=== PATIENT | female | born 1985 | race Caucasian/White ===

== ENCOUNTER 2019-02-09 07:23 | Emergency (ER) | payer BC ==
[2019-02-09] MEDS ORDERED: SODIUM CHLORIDE 0.9% 1,000 ML IV ONE (08:01)
[2019-02-09] MEDS ORDERED: METOCLOPRAMIDE 5 MG/ML 2 ML VIAL IVP STA (08:01)
[2019-02-09] MEDS ORDERED: diphenhydrAMINE 50 MG/ML 1 ML VIAL IVP STA (08:02)
[2019-02-09] MEDS ORDERED: ACETAMINOPHEN TAB 500 MG TAB PO STA (08:02)
[2019-02-09] MEDS ORDERED: FAMOTIDINE 20 MG/2 ML VIAL IV STA (08:03)
--- NOTE | 2019-02-09 08:06 | ED ---
General Adult HPI - General Chief complaint: Nausea/Vomiting/Diarrhea Stated complaint: early preg/spotting & throwing up blood Source: patient, RN notes reviewed Mode of arrival: ambulatory Limitations: no limitations - History of Present Illness Initial comments: 33-year-old female currently about 6 weeks presents to the emergency department for multiple complaints. Patient states she has been experiencing vaginal spotting since yesterday. She does state this resolved today. Patient has also had lower abdominal cramping. Patient states she has also been very nauseous and has not been able to eat much over the past several days. States she has been eating ice chips Bowater makes her vomit. Patient states she did vomit up a small dime-sized piece of blood. Patient has not had care as of yet. Patient does have an established PUNCHBOARD FILLING MACHINE OPERATOR at [facility] PUNCHBOARD FILLING MACHINE OPERATOR but is not sure of the name. Patient states she recently had an IUD removed which is likely why she became . Denies any increased vaginal discharge.Patient has no other complaints at this time including shortness of breath, chest pain, headache, or visual changes. - Related Data Previous Rx's Medication Instructions Recorded Ondansetron [Zofran ODT] 4 mg PO Q8HR PRN #15 tab 02/09/19 Allergies Allergy/AdvReac Type Severity Reaction Status Date / Time No Known Allergies Allergy Verified 02/09/19 08:20 Review of Systems ROS Statement: Those systems with pertinent positive or pertinent negative responses have been documented in the HPI. ROS Other: All systems not noted in ROS Statement are negative. Past Medical History Past Medical History: No Reported History History of Any Multi-Drug Resistant Organisms: None Reported Past Surgical History: Section Past Psychological History: No Psychological Hx Reported Smoking Status: Former smoker Past Alcohol Use History: None Reported Past Drug Use History: None Reported General Exam Limitations: no limitations General appearance: alert, in no apparent distress Head exam: Present: atraumatic, normocephalic, normal inspection Eye exam: Present: normal appearance, PERRL, EOMI. Absent: scleral icterus, conjunctival injection, periorbital swelling ENT exam: Present: normal exam, mucous membranes moist Neck exam: Present: normal inspection, full ROM. Absent: tenderness, meningismus, lymphadenopathy Respiratory exam: Present: normal lung sounds bilaterally. Absent: respiratory distress, wheezes, rales, rhonchi, stridor Cardiovascular Exam: Present: regular rate, normal rhythm, normal heart sounds. Absent: systolic murmur, diastolic murmur, rubs, gallop, clicks GI/Abdominal exam: Present: soft, tenderness (Minimal tenderness noted to the suprapubic area without any guarding or rebound), normal bowel sounds. Absent: distended, guarding, rebound, rigid External exam: Present: normal external exam. Absent: erythema, swelling, lesions, lacerations, other Speculum exam: Present: other (Patient unable to tolerate speculum exam). Absent: normal speculum exam By manual exam: Present: other (Patient refuses bimanual exam after being unable to tolerate speculum exam) Neurological exam: Present: alert, oriented X3, CN II-XII intact Psychiatric exam: Present: normal affect, normal mood Course Vital Signs 02/09/19 02/09/19 02/09/19 07:28 10:18 11:32 Temperature 98.4 F 98.0 F Pulse Rate 68 82 81 Respiratory 16 18 16 Rate Blood Pressure 101/65 92/59 92/50 O2 Sat by Pulse 100 100 99 Oximetry Medical Decision Making - Medical Decision Making 33-year-old presents to the emergency department for a chief complaint of vaginal bleeding and nausea. Patient does have some suprapubic tenderness, no other tenderness. States the pain comes and goes and feels like cramping. Patient states she did have some vaginal bleeding yesterday none today. Patient unable to tolerate speculum exam. CBC unremarkable. CMP does show a glucose of 68, patient given juice for this which she did tolerate. However urine shows ketones of 4+, patient given 2 L of fluids. Red blood cells and urine likely due to the vaginal bleeding. Ultrasound shows a single viable intrauterine corresponding to the gestational age of 6 weeks and 2 days. There is a small subchorionic hemorrhage suspected. Patient is O+. Patient was given Reglan and Zofran, is feeling much better. Patient aware of risks of Reglan and Zofran , states she would still likely for symptom relief. Has not vomited in the emergency department department. Did drink juice. Feeling much better. She'll be given Zofran for home. She is to follow up with PUNCHBOARD FILLING MACHINE OPERATOR. She does have an established PUNCHBOARD FILLING MACHINE OPERATOR but she cannot remember the name. This is through [place]. HCG Quant will be repeated in 2 days. Blood pressure is 92/50. Patient is young and thin, likely her normal blood pressure. She did receive 2 L of fluids and is drinking juice in the emergency department. Patient feels comfortable going home. - Lab Data Result diagrams: 02/09/19 08:07 02/09/19 08:07 Lab Results 02/09/19 02/09/19 02/09/19 Range/Units 08:07 08:07 08:07 WBC 8.9 (3.8-10.6) k/uL RBC 4.39 (3.80-5.40) m/uL Hgb 11.9 (11.4-16.0) gm/dL Hct 37.2 (34.0-46.0) % MCV 84.8 (80.0-100.0) fL MCH 27.2 (25.0-35.0) pg MCHC 32.1 (31.0-37.0) g/dL RDW 14.4 (11.5-15.5) % Plt Count 286 (150-450) k/uL Neutrophils % 78 % Lymphocytes % 16 % Monocytes % 4 % Eosinophils % 1 % Basophils % 0 % Neutrophils # 6.9 (1.3-7.7) k/uL Lymphocytes # 1.4 (1.0-4.8) k/uL Monocytes # 0.4 (0-1.0) k/uL Eosinophils # 0.1 (0-0.7) k/uL Basophils # 0.0 (0-0.2) k/uL Sodium 140 (137-145) mmol/L Potassium 4.4 (3.5-5.1) mmol/L Chloride 106 (98-107) mmol/L Carbon Dioxide 20 L (22-30) mmol/L Anion Gap 14 mmol/L BUN 15 (7-17) mg/dL Creatinine 0.56 (0.52-1.04) mg/dL Est GFR (CKD-EPI)AfAm >90 (>60 ml/min/1.73 sqM) Est GFR (CKD-EPI)NonAf >90 (>60 ml/min/1.73 sqM) Glucose 68 L (74-99) mg/dL Calcium 10.0 (8.4-10.2) mg/dL Total Bilirubin 1.2 (0.2-1.3) mg/dL AST 20 (14-36) U/L ALT 22 (9-52) U/L Alkaline Phosphatase 47 (38-126) U/L Total Protein 8.0 (6.3-8.2) g/dL Albumin 4.7 (3.5-5.0) g/dL HCG, Quant 51142.7 mIU/mL Urine Color Urine Appearance (Clear) Urine pH (5.0-8.0) Ur Specific [place] (1.001-1.035) Urine Protein (Negative) Urine Glucose (UA) (Negative) Urine Ketones (Negative) Urine Blood (Negative) Urine Nitrite (Negative) Urine Bilirubin (Negative) Urine Urobilinogen (<2.0) mg/dL Ur Leukocyte Esterase (Negative) Urine RBC (0-5) /hpf Urine WBC (0-5) /hpf Ur Squamous Epith Cells (0-4) /hpf Urine Bacteria (None) /hpf Urine Mucus (None) /hpf Urine HCG, Qual Detected (Not Detectd) Blood Type Blood Type Recheck 02/09/19 02/09/19 Range/Units 08:07 09:25 WBC (3.8-10.6) k/uL RBC (3.80-5.40) m/uL Hgb (11.4-16.0) gm/dL Hct (34.0-46.0) % MCV (80.0-100.0) fL MCH (25.0-35.0) pg MCHC (31.0-37.0) g/dL RDW (11.5-15.5) % Plt Count (150-450) k/uL Neutrophils % % Lymphocytes % % Monocytes % % Eosinophils % % Basophils % % Neutrophils # (1.3-7.7) k/uL Lymphocytes # (1.0-4.8) k/uL Monocytes # (0-1.0) k/uL Eosinophils # (0-0.7) k/uL Basophils # (0-0.2) k/uL Sodium (137-145) mmol/L Potassium (3.5-5.1) mmol/L Chloride (98-107) mmol/L Carbon Dioxide (22-30) mmol/L Anion Gap mmol/L BUN (7-17) mg/dL Creatinine (0.52-1.04) mg/dL Est GFR (CKD-EPI)AfAm (>60 ml/min/1.73 sqM) Est GFR (CKD-EPI)NonAf (>60 ml/min/1.73 sqM) Glucose (74-99) mg/dL Calcium (8.4-10.2) mg/dL Total Bilirubin (0.2-1.3) mg/dL AST (14-36) U/L ALT (9-52) U/L Alkaline Phosphatase (38-126) U/L Total Protein (6.3-8.2) g/dL Albumin (3.5-5.0) g/dL HCG, Quant mIU/mL Urine Color Yellow Urine Appearance Cloudy H (Clear) Urine pH 6.0 (5.0-8.0) Ur Specific [place] 1.033 (1.001-1.035) Urine Protein 2+ H (Negative) Urine Glucose (UA) Negative (Negative) Urine Ketones 4+ H (Negative) Urine Blood Moderate H (Negative) Urine Nitrite Negative (Negative) Urine Bilirubin Negative (Negative) Urine Urobilinogen 3.0 (<2.0) mg/dL Ur Leukocyte Esterase Negative (Negative) Urine RBC 98 H (0-5) /hpf Urine WBC 5 (0-5) /hpf Ur Squamous Epith Cells 4 (0-4) /hpf Urine Bacteria Rare H (None) /hpf Urine Mucus Many H (None) /hpf Urine HCG, Qual (Not Detectd) Blood Type O Positive Blood Type Recheck No Disposition Clinical Impression: Threatened miscarriage Disposition: HOME SELF-CARE Condition: Good Instructions (If sedation given, give patient instructions): Threatened Miscarriage (ED) Additional Instructions: Please follow up with primary care and OBGYN in 1-2 days. Repeat lab work in 2 days. Please return to the emergency department if you have any worsening symptoms. Prescriptions: Ondansetron [Zofran ODT] 4 mg PO Q8HR PRN #15 tab PRN Reason: Nausea Is patient prescribed a controlled substance at d/c from ED?: No Referrals: Liliana Barbosa MD [STAFF PHYSICIAN] - 1-2 days Time of Disposition: 11:00
[2019-02-09 08:45] LABS: Appearance,Urine Cloudy (Clear); Bacteria,Urine Rare /hpf; Bilirubin,Urine Negative (Negative); Blood,Urine Moderate (Negative); Color,Urine Yellow; Glucose,Urine (UA) Negative (Negative); Ketones,Urine 4+ (Negative); Leukocyte Esterase,Urine Negative (Negative); Mucus,Urine Many /hpf; Nitrite,Urine Negative (Negative); Protein,Urine 2+ (Negative); RBC,Urine 98 /hpf (0-5); Specific Gravity,Urine 1.033 (1.001-1.035); Squamous Epithelial Cell,Urine 4 /hpf (0-4); WBC,Urine 5 /hpf (0-5)
[2019-02-09 08:50] LABS: ALT 22 U/L (9-52); AST 20 U/L (14-36); Albumin 4.7 g/dL (3.5-5.0); Alkaline Phosphatase 47 U/L (38-126); Anion Gap 14 mmol/L; Basophils % (A) 0 %; Blood Urea Nitrogen 15 mg/dL (7-17); Carbon Dioxide 20 mmol/L (22-30); Chloride 106 mmol/L (98-107); Eosinophils # (A) 0.1 k/uL (0-0.7); Eosinophils % (A) 1 %; Glucose 68 mg/dL (74-99); HCT 37.2 % (34.0-46.0); HGB 11.9 gm/dL (11.4-16.0); Lymphocytes # (A) 1.4 k/uL (1.0-4.8); Lymphocytes % (A) 16 %; MCH 27.2 pg (25.0-35.0); MCHC 32.1 g/dL (31.0-37.0); MCV 84.8 fL (80.0-100.0); Mean Platelet Volume 8.3; Monocytes # (A) 0.4 k/uL (0-1.0); Monocytes % (A) 4 %; Neutrophils # (A) 6.9 k/uL (1.3-7.7); Neutrophils % (A) 78 %; Platelet Count 286 k/uL (150-450); Potassium 4.4 mmol/L (3.5-5.1); RBC 4.39 m/uL (3.80-5.40); RDW 14.4 % (11.5-15.5); Sodium 140 mmol/L (137-145); Total Bilirubin 1.2 mg/dL (0.2-1.3); WBC 8.9 k/uL (3.8-10.6)
--- NOTE | 2019-02-09 09:17 | US ---
EXAMINATION TYPE: Transabdominal DATE OF EXAM: 02/09/2019 8:46 AM COMPARISON: NONE CLINICAL HISTORY: pain. Spotting and cramping x 2 days, N/V x 1 day, throwing up blood today, 3, para 2, history of 2 c-sections EXAM PERFORMED: Transabdominal (TA) EXAM MEASUREMENTS: GESTATIONAL AGE / DATING Physician Established: Not established yet Dates by LMP: (5 weeks/6 days) EDC: 10/06/2019 Dates by First Scan: This is 1st scan Dates by Current Scan for: (6 weeks/2 days) EDC: 10/03/2019 MATERNAL ANATOMY Uterus: 8.5 x 5.0 x 6.1cm, anteverted Right Ovary: 3.7 x 2.1 x 2.9cm Left Ovary: 3.3 x 1.3 x 2.1cm Post CDS / Adnexa: wnl Presence of free fluid: no Presence of corpus luteal cyst: right ovary: 2.5 x 1.7 x 2.0cm hypoechoic area with peripheral vascul arity Presence of subchorionic bleed: small 1.2 x 0.7 x 1.2cm hypoechoic area adjacent to gestational sac GESTATION / SURVEY CRL: 0.4cm (6 weeks/0 days) MSD: 2.1 (6 weeks/4 days) Yolk Sac (normal less than 6mm): 3.7mm Heart Rate: 111 bpm Rhythm: Normal IUP: Viable IUP Date of LMP: 12/30/2018 Beta HcG (if available): Not available at time of exam Viable single IUP measuring 6 weeks 2 days with a heart rate of 111bpm and an estimated delivery date of 10/03/2019. IMPRESSION: Single viable intrauterine corresponding to ultrasound age 6 weeks 2 days with estimated da te of delivery 10/03/2019. Small subchorionic hemorrhage suspected.
[2019-02-09] MEDS ORDERED: SODIUM CHLORIDE 0.9% 1,000 ML IV STA (09:25)
[2019-02-09 09:36] LABS: HCG,Quantitative Serum 73572.7 mIU/mL
[2019-02-09] MEDS ORDERED: ONDANSETRON 4 MG/2 ML VIAL IVP STA (10:20)
[2019-02-09 11:33] VITALS: BP 92/50; PULSE 81; RESP 16; TEMP 98
[2019-02-10 13:38] LABS: C. trachomatis,PCR Negative (Neg,Equiv); Chlamydia trachomatis Source Urine
[2019-02-10 13:39] LABS: N. gonorrhoeae,PCR Negative (Neg,Equiv); Neisseria Source Urine
== END 2019-02-09 11:48 | disposition home or self-care (01) ==
LOC: EC 07:23
DX: O20.0 Threatened abortion (principal); O99.89 Other specified diseases and conditions complicating pregnancy, childbirth and the puerperium; R82.4 Acetonuria; Z67.40 Type O blood, Rh positive; Z87.891 Personal history of nicotine dependence; Z98.890 Other specified postprocedural states; Z3A.01 Less than 8 weeks gestation of pregnancy; Z53.20 Procedure and treatment not carried out because of patient's decision for unspecified reasons
CPT/HCPCS: 36415; 86900; 86901; 80053; 85025; 81001; 81025; 84702; 87491; 87591; 76801; 99284; 96374; 96375 ×3; 96361 ×3; J1200; J2765; J2405

== ENCOUNTER 2019-02-13 09:16 | Emergency (ER) | payer BC ==
[2019-02-13 09:33] VITALS: TEMP 98.6
[2019-02-13] MEDS ORDERED: METOCLOPRAMIDE 5 MG/ML 2 ML VIAL IVP STA (10:45)
[2019-02-13] MEDS ORDERED: SODIUM CHLORIDE 0.9% 1,000 ML IV STA ×2 (10:45)
[2019-02-13] MEDS ORDERED: diphenhydrAMINE 50 MG/ML 1 ML VIAL IVP STA (10:45)
--- NOTE | 2019-02-13 10:47 | ED ---
Abdominal Pain HPI - General Chief Complaint: Abdominal Pain Stated Complaint: 6wks preg, cramping, vomiting Time Seen by Provider: 02/13/19 10:31 Source: patient, RN notes reviewed, old records reviewed Mode of arrival: ambulatory Limitations: no limitations - History of Present Illness Initial Comments: this is a 33-year-old female who presents emergency Department today for reevaluation for nausea and vomiting and lower abdominal cramping and occasional spotting. She is currently 6 weeks . She is seen in the emergency department 4 days ago for similar complaints. She reports that she is waiting for an HAZ TECH to prove her is Patient. Patient is a female. Patient states she plans to follow-up with Dr. Bueno. Patient states that she's had the same amount of light spotting with wiping after urinating. Patient complains of not being able to hold any food or drink down for greater than 45 minutes.Patient complains of bright red blood in her vomit. Patient states that she's had no chest pain or shortness of breath. She denies any dysuria or hematuria. She reports normal stools. - Related Data Previous Rx's Medication Instructions Recorded Metoclopramide [Reglan] 10 mg PO ACHS #12 tab 02/13/19 Allergies Allergy/AdvReac Type Severity Reaction Status Date / Time No Known Allergies Allergy Verified 02/13/19 10:36 Review of Systems ROS Statement: Those systems with pertinent positive or pertinent negative responses have been documented in the HPI. ROS Other: All systems not noted in ROS Statement are negative. Past Medical History Past Medical History: No Reported History History of Any Multi-Drug Resistant Organisms: None Reported Past Surgical History: Section Past Psychological History: No Psychological Hx Reported Smoking Status: Former smoker Past Alcohol Use History: None Reported Past Drug Use History: None Reported General Exam - General Exam Comments Initial Comments: This is a 33-year-old female. Alert and oriented 3. Patient appears in moderate discomfort. General: Well appearing, well nourished, in no distress. Oriented x 3, normal mood and affect . Ambulating without difficulty. Skin: Good turgor, no rash, unusual bruising or prominent lesions Hair: Normal texture and distribution. HEENT: Head: Normocephalic, atraumatic, no visible or palpable masses, depressions, or scaring. Eyes: Visual acuity intact, conjunctiva clear, sclera non-icteric, EOM intact, PERRL. Ears: EACs clear, TMs translucent & cone of light visualized. hearing intact. Nose: No external lesions, mucosa non-inflamed, septum and turbinates normal Mouth: Mucous membranes moist, no mucosal lesions. Teeth/Gums: No obvious caries or periodontal disease. No gingival inflammation or significant resorption. Pharynx: Mucosa non-inflamed, no tonsillar hypertrophy or exudate Neck: Supple, without lesions, bruits, or adenopathy, thyroid non-enlarged and non-tender Heart: No cardiomegaly or thrills; regular rate and rhythm, no murmur or gallop Lungs: Clear to auscultation and percussion Abdomen: Bowel sounds normal, no tenderness, organomegaly, masses, or hernia Extremities: No amputations or deformities, cyanosis, edema or varicosities, peripheral pulses intact Musculoskeletal: Normal gait and station. No misalignment, asymmetry, crepitation, defects, tenderness, masses, effusions, decreased range of motion, instability, atrophy or abnormal strength or tone in the head, neck, spine, ribs, pelvis or extremities. Neurologic: CN 2-12 normal. Sensation to pain, touch, and proprioception normal. DTRs normal in upper and lower extremities. No pathologic reflexes. Psychiatric: Oriented X3, intact recent and remote memory, judgment and insight, normal mood and affect. Limitations: no limitations Course Vital Signs 02/13/19 02/13/19 09:30 14:15 Temperature 98.6 F Pulse Rate 105 H 93 Respiratory 18 15 Rate Blood Pressure 112/66 98/54 O2 Sat by Pulse 99 100 Oximetry Medical Decision Making - Medical Decision Making 33 -year-old female who presents emergency Department today with complaints of nausea and vomiting. Vomiting some blood. She states that she is 6 weeks . She was sent to get some repeat lab work had not had it completed as of this time. She states she's had some intermittent spotting. Patient has no significant abdominal tenderness. Bladder work was reviewed with radiation she has increased. Ultrasound does show viable IUP. Patient has been given nausea medication. She was given a liter bolus. Patient did urinate emergency department but did flush her urine sample. Unable to check at this time. Patient will be discharged with prescription for Reglan. Discussed return parameters. - Lab Data Result diagrams: 02/13/19 11:24 02/13/19 11:24 Lab Results 02/13/19 02/13/19 Range/Units 11:24 11:24 WBC 9.7 (3.8-10.6) k/uL RBC 4.82 (3.80-5.40) m/uL Hgb 13.2 (11.4-16.0) gm/dL Hct 41.3 (34.0-46.0) % MCV 85.6 (80.0-100.0) fL MCH 27.3 (25.0-35.0) pg MCHC 31.9 (31.0-37.0) g/dL RDW 14.8 (11.5-15.5) % Plt Count 316 (150-450) k/uL Neutrophils % 81 % Lymphocytes % 13 % Monocytes % 3 % Eosinophils % 1 % Basophils % 0 % Neutrophils # 7.9 H (1.3-7.7) k/uL Lymphocytes # 1.3 (1.0-4.8) k/uL Monocytes # 0.3 (0-1.0) k/uL Eosinophils # 0.1 (0-0.7) k/uL Basophils # 0.0 (0-0.2) k/uL Hypochromasia Slight Sodium 139 (137-145) mmol/L Potassium 4.4 (3.5-5.1) mmol/L Chloride 108 H (98-107) mmol/L Carbon Dioxide 14 L (22-30) mmol/L Anion Gap 17 mmol/L BUN 15 (7-17) mg/dL Creatinine 0.62 (0.52-1.04) mg/dL Est GFR (CKD-EPI)AfAm >90 (>60 ml/min/1.73 sqM) Est GFR (CKD-EPI)NonAf >90 (>60 ml/min/1.73 sqM) Glucose 67 L (74-99) mg/dL Calcium 10.6 H (8.4-10.2) mg/dL Total Bilirubin 1.2 (0.2-1.3) mg/dL AST 20 (14-36) U/L ALT 18 (9-52) U/L Alkaline Phosphatase 50 (38-126) U/L Total Protein 8.7 H (6.3-8.2) g/dL Albumin 5.1 H (3.5-5.0) g/dL Amylase 82 (30-110) U/L Lipase 37 (23-300) U/L HCG, Quant 375798.0 mIU/mL - Radiology Data Radiology results: report reviewed Heart a 1 26 bpm. 27 m subchorionic bleed. Disposition Clinical Impression: 6 weeks gestation of , Nausea & vomiting Disposition: HOME SELF-CARE Condition: Good Instructions (If sedation given, give patient instructions): Nausea and Vomit ing in (ED) Additional Instructions: Patient advised is follow-up with her primary care provider and HAZ TECH. Use nausea medicine as needed. Return to emergency department if any alarming signs or symptoms occur. Prescriptions: Metoclopramide [Reglan] 10 mg PO ACHS #12 tab Is patient prescribed a controlled substance at d/c from ED?: No Referrals: None,Stated [Primary Care Provider] - 1-2 days Mark Saunders DO [Doctor of Osteopathic Medicine] - 1-2 days Time of Disposition: 14:07
[2019-02-13 11:46] LABS: ALT 18 U/L (9-52); AST 20 U/L (14-36); Albumin 5.1 g/dL (3.5-5.0); Alkaline Phosphatase 50 U/L (38-126); Amylase 82 U/L (30-110); Anion Gap 17 mmol/L; Blood Urea Nitrogen 15 mg/dL (7-17); Calcium 10.6 mg/dL (8.4-10.2); Carbon Dioxide 14 mmol/L (22-30); Chloride 108 mmol/L (98-107); Glucose 67 mg/dL (74-99); Lipase 37 U/L (23-300); Potassium 4.4 mmol/L (3.5-5.1); Sodium 139 mmol/L (137-145); Total Bilirubin 1.2 mg/dL (0.2-1.3); Total Protein 8.7 g/dL (6.3-8.2)
[2019-02-13 11:47] LABS: Basophils % (A) 0 %; Eosinophils # (A) 0.1 k/uL (0-0.7); Eosinophils % (A) 1 %; HCT 41.3 % (34.0-46.0); HGB 13.2 gm/dL (11.4-16.0); Hypochromasia Slight; Lymphocytes # (A) 1.3 k/uL (1.0-4.8); Lymphocytes % (A) 13 %; MCH 27.3 pg (25.0-35.0); MCHC 31.9 g/dL (31.0-37.0); MCV 85.6 fL (80.0-100.0); Mean Platelet Volume 8.2; Monocytes # (A) 0.3 k/uL (0-1.0); Monocytes % (A) 3 %; Neutrophils # (A) 7.9 k/uL (1.3-7.7); Neutrophils % (A) 81 %; Platelet Count 316 k/uL (150-450); RBC 4.82 m/uL (3.80-5.40); RDW 14.8 % (11.5-15.5); WBC 9.7 k/uL (3.8-10.6)
--- NOTE | 2019-02-13 13:23 | US ---
EXAMINATION TYPE: Transabdominal DATE OF EXAM: 02/13/2019 1:05 PM COMPARISON: US CLINICAL HISTORY: Pain. pelvic pain with small amount of vaginal bleeding; ; C section x 2 EXAM PERFORMED: Transabdominal (TA) EXAM MEASUREMENTS: GESTATIONAL AGE / DATING Physician Established: Not yet established Dates by LMP: ( 6 weeks/3 days) EDC: 10/06/2019 Dates by First Scan: (6 weeks/6 days) EDC: 10/03/2019 Dates by Current Scan for: (6 weeks/5 days) EDC: 10/04/2019 MATERNAL ANATOMY Uterus: 9.3 x 6.0 x 5.5cm Right Ovary: 3.2 x 2.8 x 21.9cm w/CL of Left Ovary: 2.1 x 1.4 x 1.6cm Post CDS / Adnexa: wnl Presence of free fluid: no Presence of corpus luteal cyst: in right ovary = 2.1 x 1.3 x 1.9cm Presence of subchorionic bleed ([place]): yes, seen at superior subchorionic area = 2.0 x 2.0 x 0.7cm GESTATION / SURVEY CRL: 0.8cm (6 weeks/5 days) Yolk Sac (normal less than 6mm): 4.1mm Heart Rate: 126 bpm Rhythm: Normal IUP: Viable IUP Date of LMP: 12/30/2018 Beta HcG (if available): NA Single, viable IUP,6 weeks/5 days, EDC: 10/04/2019; [id number]; presence of Subchorionic hemorrhage. IMPRESSION: Single viable 6 week 5 day with a heart rate of 126 bpm. There is a 2.0 cm subchorionic hem orrhage.
[2019-02-13 14:19] VITALS: BP 98/54; PULSE 93; RESP 15
== END 2019-02-13 15:00 | disposition home or self-care (01) ==
LOC: EC 09:16
DX: O21.9 Vomiting of pregnancy, unspecified (principal); O26.891 Other specified pregnancy related conditions, first trimester; R10.30 Lower abdominal pain, unspecified; Z3A.01 Less than 8 weeks gestation of pregnancy; Z87.891 Personal history of nicotine dependence; Z53.8 Procedure and treatment not carried out for other reasons
CPT/HCPCS: 36415; 80053; 82150; 83690; 85025; 84702; 76801; 99284; 96374; 96375; 96361 ×2; J1200; J2765

== ENCOUNTER 2019-02-23 11:34 | Inpatient (IN) | payer BC ==
[2019-02-23] MEDS ORDERED: SODIUM CHLORIDE 0.45% 1,000 ML IV SCH (12:00)
[2019-02-23] MEDS ORDERED: LIDOCAINE 1% INJ 10MG/ML (20 ML MDV) ONE (15:58)
--- NOTE | 2019-02-23 16:48 | IR ---
EXAMINATION TYPE: IR cvc insert >=5 years DATE OF EXAM: 02/23/2019 COMPARISON: NONE CLINICAL HISTORY: Hyperemesis Needs long-term intravenous access for hydration. PROCEDURE: After informed consent, the skin overlying the left brachial vein was localized with ultrasound and n oted to be compressible and patent. An ultrasound image was obtained and submitted on the patient's chart. The overlying skin was prepped and draped and Lidocaine was used for local anesthesia. A ski n anali was made with a scalpel. Access was gained to the vein under ultrasound guidance with a 21 ga uge needle and a 0.018 inch wire was advanced. Access site was dilated with Peel-Away sheath and cat heter tailored to the appropriate length and advanced such that the distal tip is at the cavoatrial j unction. Spot image was obtained verifying placement. Catheter was fixed to the skin and a sterile dressing was placed following hemostasis. Catheter was aspirated and flushed with saline. Patient w as discharged in stable condition without complication. Maximal barrier technique is utilized. Ultra sound image is documented on the chart. Ultrasound used with sterile technique. Fluoro time and fluoroscopic images submitted to document procedure: 0.5 minutes fluoroscopy time, 19 intraoperative images document the procedure IMPRESSION: STATUS POST ULTRASOUND AND FLUOROSCOPIC GUIDED PICC LINE PLACEMENT, READY FOR USE. THIS PROCEDURE WAS PERFORMED BY THE UNDERSIGNED.
[2019-02-23] MEDS ORDERED: ONDANSETRON 4 MG/2 ML VIAL IVP PRN (16:57)
[2019-02-23] MEDS ORDERED: DEXTROSE 5%-LACTATED RINGERS 1,000 ML IV SCH ×3 (17:00→19:00)
[2019-02-23 18:55] LABS: Appearance,Urine Turbid (Clear); Bacteria,Urine Many /hpf; Bilirubin,Urine Negative (Negative); Blood,Urine Negative (Negative); Color,Urine Yellow; Glucose,Urine (UA) 4+ (Negative); Leukocyte Esterase,Urine Trace (Negative); Mucus,Urine Many /hpf; Nitrite,Urine Positive (Negative); PH, Urine 6.5 (5.0-8.0); Protein,Urine Trace (Negative); RBC,Urine 4 /hpf (0-5); Specific Gravity,Urine 1.017 (1.001-1.035); Squamous Epithelial Cell,Urine 64 /hpf (0-4); WBC,Urine 17 /hpf (0-5)
[2019-02-23 19:12] LABS: Ketones,Urine 2+ (Negative)
[2019-02-23] MEDS ORDERED: LACTATED RINGERS 1,000 ML IV SCH (19:30)
[2019-02-23] MEDS: LACTATED RINGERS 1,000 ML IV SCH (20:29)
--- NOTE | 2019-02-23 20:54 | P.HPOB ---
History of Present Illness H&P Date: 02/23/19 Chief Complaint: 7+ weeks, hyperemesis gravidarum The patient is a 33-year-old 3 para 2001 who presented to the office this morning with continued complaints of severe nausea and vomiting for which she has tried Zofran as well as Phenergan suppositories but continues to have regular and daily vomiting. She reported that she is urinating perhaps once or twice a day and that it is significantly concentrated. As a result, I had her present to triage for IV rehydration at which time we were unable to place a routine IV either by the nursing staff or by anesthesia. An attempt was made by the clinical laboratory scientist to do ultrasound-guided placement of an IV which failed. She also had a failed attempt at placing in external jugular line. As result, the only option was to have a PICC line placed with radiology which was performed without difficulty. She since then has had aggressive rehydration but continues to have nausea. heart tones were normal in the office this morning by bedside ultrasound. She additionally complains of some fairly significant congestion with an upper respiratory infection. There has been some vaginal bleeding as well from a documented subchorionic bleed but, as noted above, heart tones were normal this morning. Obstetrical history: 3 para 2001 with a history of 2 previous normal vaginal deliveries approximate 10 years ago. Current statistics are as listed above. Her EDC has been established by both last menstrual period and confirmed by 6 week ultrasound. labs have not yet been drawn. Gynecologic history: Unremarkable with no history of any infections to include STDs. Review of Systems Review of systems is confined to history of present illness. Past Medical History Past Medical History: No Reported History History of Any Multi-Drug Resistant Organisms: None Reported Past Surgical History: Section Additional Past Surgical History / Comment(s): x2 Past Anesthesia/Blood Transfusion Reactions: No Reported Reaction Past Psychological History: No Psychological Hx Reported Smoking Status: Never smoker Past Alcohol Use History: None Reported Past Drug Use History: None Reported - Past Family History Mother Family Medical History: No Reported History Father Family Medical History: Unable to Obtain Medications and Allergies Home Medications Medication Instructions Recorded Confirmed Type Metoclopramide [Reglan] 10 mg PO ACHS #12 tab 02/13/19 02/23/19 Rx Ondansetron Odt [Zofran ODT] 4 mg PO Q6HR PRN 02/23/19 02/23/19 History Promethazine HCl [Phenadoz] 25 mg RECTAL Q6HR PRN 02/23/19 02/23/19 History Allergies Allergy/AdvReac Type Severity Reaction Status Date / Time No Known Allergies Allergy Verified 02/23/19 17:24 Exam Vital Signs Temp Pulse Resp BP Pulse Ox 02/23/19 20:00 98.5 F 88 18 100/66 100 02/23/19 16:28 99.0 F 84 16 108/61 100 Intake and Output 02/23/19 02/23/19 02/23/19 06:59 14:59 22:59 Output Total 750 Balance -750 Output: Urine 750 Other: Voiding Method Toilet # Emeses 1 Weight 68.039 kg 68.6 kg In general, this is a well-developed, well-nourished -[place] female in no acute distress. Her heart has a regular rhythm and rate without murmur. Her lungs are clear to auscultation bilaterally in all kimble. Her abdomen is nondistended, soft, nontender, and without any palpable masses. Her extremities are without any cyanosis, clubbing, or edema and are nontender to palpation bilaterally. Pelvic examination is deferred. Results Abnormal Lab Results - Last 24 Hours (Table) 02/23/19 Range/Units 18:40 Urine Appearance Turbid H (Clear) Urine Protein Trace H (Negative) Urine Glucose (UA) 4+ H (Negative) Urine Ketones 2+ H (Negative) Urine Nitrite Positive H (Negative) Ur Leukocyte Esterase Trace H (Negative) Urine WBC 17 H (0-5) /hpf Ur Squamous Epith Cells 64 H (0-4) /hpf Urine Bacteria Many H (None) /hpf Urine Mucus Many H (None) /hpf Assessment and Plan (1) Hyperemesis gravidarum Current Visit: Yes Status: Acute Code(s): O21.0 - MILD HYPEREMESIS GRAVIDARUM SNOMED Code(s): 49822032 (2) Threatened miscarriage Current Visit: No Status: Acute Code(s): O20.0 - THREATENED S NOMED Code(s): 61331306 Plan: As noted in history of present illness, a PICC line has been placed which will be useful and continuing to maintain her hydration. I will seek a nutrition consult tomorrow and have drawn both a CBC and a complete metabolic panel in order to attempt to help assess her nutritional status. She additionally has Zofran available for ongoing nausea. At this time, I have allowed her only sips and chips to clear liquids if she is able to tolerate. Should she tolerate liquids, we will attempt to advance her diet. She is currently admitted under 23 hour observation but may require a longer stay should we be unable to manage her nausea.
[2019-02-23] MEDS: PSEUDOEPHEDRINE 30 MG TAB PO PRN (21:58)
[2019-02-24] MEDS: LACTATED RINGERS 1,000 ML IV SCH ×3 (06:10→17:50)
[2019-02-24 07:59] LABS: Basophils % (A) 0 %; Eosinophils # (A) 0.1 k/uL (0-0.7); Eosinophils % (A) 1 %; HCT 28.8 % (34.0-46.0); Lymphocytes # (A) 1.3 k/uL (1.0-4.8); Lymphocytes % (A) 18 %; MCH 28.2 pg (25.0-35.0); MCHC 34.6 g/dL (31.0-37.0); MCV 81.5 fL (80.0-100.0); Mean Platelet Volume 8.8; Monocytes # (A) 0.4 k/uL (0-1.0); Monocytes % (A) 5 %; Neutrophils # (A) 5.7 k/uL (1.3-7.7); Neutrophils % (A) 76 %; Platelet Count 201 k/uL (150-450); RBC 3.54 m/uL (3.80-5.40); RDW 14.4 % (11.5-15.5); WBC 7.6 k/uL (3.8-10.6)
[2019-02-24 08:17] LABS: ALT 14 U/L (9-52); AST 13 U/L (14-36); Albumin 3.2 g/dL (3.5-5.0); Alkaline Phosphatase 42 U/L (38-126); Anion Gap 8 mmol/L; Blood Urea Nitrogen 3 mg/dL (7-17); Calcium 9.1 mg/dL (8.4-10.2); Carbon Dioxide 24 mmol/L (22-30); Chloride 106 mmol/L (98-107); Glucose 77 mg/dL (74-99); Potassium 3.4 mmol/L (3.5-5.1); Sodium 138 mmol/L (137-145); Total Bilirubin 0.8 mg/dL (0.2-1.3); Total Protein 5.8 g/dL (6.3-8.2)
--- NOTE | 2019-02-24 09:55 | P.PN ---
Subjective Progress Note Date: 02/24/19 Principal diagnosis: 7+ weeks intrauterine , hyperemesis The patient does report some improvement in nausea though she still continues to have a moderate degree of nausea with less vomiting. She has been able to tolerate a small amount of Jell-O though does not have a significant degree of hunger at this point. She denies any other ongoing problems or concerns. She is urinating on a regular basis now and reports that it is significantly less concentrated in appearance. Objective - Vital Signs Vital signs: Vital Signs Temp 98.6 F 02/24/19 07:42 Pulse 75 02/24/19 07:43 Resp 16 02/24/19 07:43 BP 94/61 02/24/19 07:42 Pulse Ox 100 02/24/19 07:42 Intake & Output 02/23/19 02/24/19 02/24/19 18:59 06:59 18:59 Intake Total 170 Output Total 350 1050 375 Balance -350 -880 -375 Weight 68.6 kg Intake: Oral 170 Output: Urine 350 1050 375 Other: Voiding Method Toilet Toilet # Voids 1 # Emeses 1 - Exam In general, this is a well-developed, well-nourished female in no acute distress. Her abdomen is nondistended, soft, nontender, without any apparent masses. Her extremities are without any cyanosis, clubbing, or edema and are nontender to palpation bilaterally. - Labs CBC & Chem 7: 02/24/19 07:14 02/24/19 07:14 Labs: Abnormal Lab Results - Last 24 Hours (Table) 02/23/19 02/24/19 02/24/19 Range/Units 18:40 07:14 07:14 RBC 3.54 L (3.80-5.40) m/uL Hgb 10.0 L D (11.4-16.0) gm/dL Hct 28.8 L (34.0-46.0) % Potassium 3.4 L (3.5-5.1) mmol/L BUN 3 L (7-17) mg/dL Creatinine 0.44 L (0.52-1.04) mg/dL AST 13 L (14-36) U/L Total Protein 5.8 L (6.3-8.2) g/dL Albumin 3.2 L (3.5-5.0) g/dL Urine Appearance Turbid H (Clear) Urine Protein Trace H (Negative) Urine Glucose (UA) 4+ H (Negative) Urine Ketones 2+ H (Negative) Urine Nitrite Positive H (Negative) Ur Leukocyte Esterase Trace H (Negative) Urine WBC 17 H (0-5) /hpf Ur Squamous Epith Cells 64 H (0-4) /hpf Urine Bacteria Many H (None) /hpf Urine Mucus Many H (None) /hpf Assessment and Plan (1) Hyperemesis gravidarum Current Visit: Yes Status: Acute Code(s): O21.0 - MILD HYPEREMESIS GRAVIDARUM SNOMED Code(s): 75075248 (2) Threatened miscarriage Current Visit: No Status: Acute Code(s): O20.0 - THREATENED SNOMED Code(s): 61017484 Plan: Nutrition consultation is pending today and will likely require some additional potassium given her lab findings. I will add some IV Pepcid today to see if this improves any of her nausea as well. I have encouraged her to slowly attempt to increase her oral intake with the idea of discharging her as soon as she is able to manage herself as an outpatient. She will need to be instructed on care and management of her PICC line.
[2019-02-24] MEDS: FAMOTIDINE 20 MG/2 ML VIAL IV SCH ×2 (10:19→20:22)
--- NOTE | 2019-02-24 11:37 | P.MSEPDOC ---
Presenting Problems - Arrival Data Date of Arrival on Unit: 02/23/19 Time of Arrival on Unit: 16:50 Mode of Transport: Wheelchair - Complaint OB-Reason for Admission/Chief Complaint: Hyperemesis Comment: Pt sent from clinic. Vital Signs - Temperature Temperature: 98.6 F Temperature Source: Oral - Pulse Pulse Oximetery Pulse Rate: 75 Pulse Assessment Method: Pulse Oximetry - Respirations Respiratory Rate: 16 - Blood Pressure Right Arm Blood Pressure: 94/61 Blood Pressure Mean: 72 Blood Pressure Source: Automatic Cuff Physician Notification (Pre) - Physician Notified Physician/Practitioner Notifed:: mike New Order Received: Yes - Notification Comment Comment: Dr Dela Cruz called with update on pt. updated on intake .lack of nausea. lack of ambulation in amos. orders received to get consult for case management for picc line care at home. and human resource statistician to start TPN while pt is in hospital. I agree with the RN Medical Screening Exam: Yes Risk & Benefit of care provided described in d/c instruction: Yes Diagnosis: VOMITING OF , UNSPECIFIED
[2019-02-24 12:27] LABS: Glucose,Whole Blood 76 mg/dL (75-99)
[2019-02-24] MEDS ORDERED: INSULIN ASPART (NovoLOG) 100 UNIT/ML VIAL SQ SCH (12:30)
[2019-02-24 12:52] VITALS: BMI 26.9
[2019-02-24 13:00] LABS: Magnesium 1.5 mg/dL (1.6-2.3); Phosphorus 3.6 mg/dL (2.5-4.5)
[2019-02-24] MEDS ORDERED: MVI, ADULT NO.4 WITH VIT K 10 ML, TRACE (CONC-1ML/DOSE) 1 ML in AMINO ACID 5%-D15W+LYTE... IV ONE ×3 (14:00)
[2019-02-24] MEDS ORDERED: FAT EMULSION 20% 250 ML IV SCH (14:00)
[2019-02-24 17:27] LABS: Glucose,Whole Blood 86 mg/dL (75-99)
[2019-02-24] MEDS: INSULIN ASPART (NovoLOG) 100 UNIT/ML VIAL SQ SCH (17:27)
[2019-02-24] MEDS: PSEUDOEPHEDRINE 30 MG TAB PO PRN (22:33)
[2019-02-25] MEDS: INSULIN ASPART (NovoLOG) 100 UNIT/ML VIAL SQ SCH ×2 (00:12→06:30)
[2019-02-25 00:15] LABS: Glucose,Whole Blood 104 mg/dL (75-99)
[2019-02-25] MEDS: LACTATED RINGERS 1,000 ML IV SCH (03:05)
[2019-02-25 06:10] LABS: Glucose,Whole Blood 92 mg/dL (75-99)
[2019-02-25] MEDS: FAMOTIDINE 20 MG/2 ML VIAL IV SCH (08:25)
[2019-02-25 08:55] VITALS: BP 93/59; PULSE 77; RESP 16; TEMP 98.3
--- NOTE | 2019-02-25 09:11 | P.DS ---
Providers Date of admission: 02/24/19 14:30 Expected date of discharge: 02/25/19 Attending physician: Bryson Dela Cruz Primary care physician: Stated None - Discharge Diagnosis(es) (1) Hyperemesis gravidarum Current Visit: Yes Status: Acute (2) 6 weeks gestation of Current Visit: No Status: Acute (3) Nausea & vomiting Current Visit: No Status: Acute Hospital Course: this is a pleasant 33-year-old 3 para 2001 at 6 weeks gestation that presented with complaints of severe nausea and vomiting to Dr. Dela Cruz. she had failed outpatient treatment with Zofran as well as Phenergan suppositories. She was sent to triage for IV hydration at which time they were unable to place an IV by anesthesia or the nursing staff therefore a PICC line was placed. Patient had aggressive rehydration, nausea this morning has decreased and she is able to tolerate crackers. She states she is feeling improved. We will maintain PICC line and have ordered home care to give her a fluid bolus tomorrow in addition. She states she is able to tolerate her Zofran ODT tablets without nausea or vomiting so we will continue those. She does have that was at home in addition. She denies vaginal bleeding. Patient Condition at Discharge: Good Plan - Discharge Summary Discharge Rx Participant: No New Discharge Prescriptions: No Action Metoclopramide [Reglan] 10 mg PO ACHS #12 tab Promethazine HCl [Phenadoz] 25 mg RECTAL Q6HR PRN PRN Reason: nausea Ondansetron Odt [Zofran ODT] 4 mg PO Q6HR PRN PRN Reason: Nausea Discharge Medication List Metoclopramide [Reglan] 10 mg PO ACHS #12 tab 02/13/19 [Rx] Ondansetron Odt [Zofran ODT] 4 mg PO Q6HR PRN 02/23/19 [History] Promethazine HCl [Phenadoz] 25 mg RECTAL Q6HR PRN 02/23/19 [History] Follow up Appointment(s)/Referral(s): [facility], [NON-STAFF] - [facility], [REFERRING] - Bryson Dela Cruz MD [STAFF PHYSICIAN] - 1 Week Discharge Disposition: HOME SELF-CARE
[2019-02-25 10:13] LABS: Anion Gap 8 mmol/L; Blood Urea Nitrogen 4 mg/dL (7-17); Calcium 9.1 mg/dL (8.4-10.2); Carbon Dioxide 25 mmol/L (22-30); Chloride 106 mmol/L (98-107); Glucose 85 mg/dL (74-99); Magnesium 1.6 mg/dL (1.6-2.3); Phosphorus 3.7 mg/dL (2.5-4.5); Potassium 3.3 mmol/L (3.5-5.1); Sodium 139 mmol/L (137-145)
[2019-02-25 10:48] LABS: Ionized Calcium 5.2 mg/dL (4.5-5.3)
[2019-02-25] MEDS ORDERED: 1: MVI, ADULT NO.4 WITH VIT K 10 ML, TRACE (CONC-1ML/DOSE) 1 ML in AMINO ACID 5%-D15W+LY IV SCH ×3 (14:00)
== END 2019-02-25 12:40 | disposition home health service (06) | DRG 832 ==
LOC: FBPOP 11:34 → 4FBP 15:42 → 6PED 16:10 → OBSVTOIN 02-24 14:30
PROVIDERS: ADMIT Obstetrics & Gynecology; ATTEND Obstetrics & Gynecology
PROC: 02HV33Z Insertion of Infusion Device into Superior Vena Cava, Percutaneous Approach (ICD-10-PCS; principal; 2019-02-23 13:55)
PROC: 3E0436Z Introduction of Nutritional Substance into Central Vein, Percutaneous Approach (ICD-10-PCS; 2019-02-24)
DX: O21.0 Mild hyperemesis gravidarum (principal); O20.0 Threatened abortion; Z3A.01 Less than 8 weeks gestation of pregnancy; O99.511 Diseases of the respiratory system complicating pregnancy, first trimester; J06.9 Acute upper respiratory infection, unspecified; Z79.899 Other long term (current) drug therapy; Z98.891 History of uterine scar from previous surgery
CPT/HCPCS: 36573; 80048; 80053; 81001; 82330; 83735; 84100; 84478; 85025

== ENCOUNTER → 2019-03-02 | Outpatient (CLI) | payer BC ==
--- NOTE | 2019-03-02 12:46 | US ---
EXAMINATION TYPE: Transabdominal DATE OF EXAM: 03/02/2019 12:19 PM COMPARISON: US 02/09/19, 02/13/19. CLINICAL HISTORY: O76 Abnormality in heart rate and rhythm com. Abnormal/absent heart ton es per order. EXAM PERFORMED: Transabdominal (TA) EXAM MEASUREMENTS: GESTATIONAL AGE / DATING Physician Established: (8 weeks/6 days) EDC: 10/06/2019 Dates by LMP: (8 weeks/6 days) EDC: 10/06/2019 Dates by First Scan: ( 9weeks/ 2 days) EDC: 10/03/2019 Dates by Current Scan for: (9 weeks/1 days) EDC: 10/04/2019 MATERNAL ANATOMY Uterus: 11.3 x 8.2 x 6.0 cm Right Ovary: 3.4 x 2.0 x 1.9 cm Left Ovary: Not visualized Post CDS / Adnexa: Fluid seen CDS Presence of free fluid: Yes, minimal amount. Presence of corpus luteal cyst: Area of mixed echogenicity seen right ovary: 2.5 x 1.4 x 1.5 cm. Presence of subchorionic bleed: Not seen GESTATION / SURVEY CRL: 2.4 cm (9 weeks/1 day) MSD: 3.9 cm (9 weeks/1 day) Yolk Sac (normal less than 6mm): 4 mm Heart Rate: Not detected. Date of LMP: 12/30/2018 *No heart tones detected. IMPRESSION: There is a pole with a crown-rump length of 2.4 cm however no heart tones could be detect ed. Correlate clinically. Small amount of free fluid in the pelvis.
== END | disposition home or self-care (01) ==
LOC: RADUSWWP 11:45
PROVIDERS: ATTEND Obstetrics & Gynecology
DX: O76 Abnormality in fetal heart rate and rhythm complicating labor and delivery (principal); Z3A.09 9 weeks gestation of pregnancy
CPT/HCPCS: 76801

== ENCOUNTER 2019-03-06 07:48 | Day surgery (SDC) | payer BC ==
[2019-03-03 13:26] VITALS: BMI 26.6
[~2019-03-06 07:48] MED LIST: DEXAMETHASONE SOD PHOSPHATE 10 MG/ML 1 ML VIAL IV ONE; LACTATED RINGERS 1,000 ML IV SCH; LIDOCAINE 1% 20 ML VIAL (10MG/ML) FOR IV START INTRADERMA PRN; ONDANSETRON 4 MG/2 ML VIAL IVP ONE; Pre Op ABX Message 1 EACH MISC MISCELLANE ONE
[2019-03-06] MEDS ORDERED: DEXAMETHASONE SOD PHOSPHATE 4 MG/ML 1 ML VIAL IV ONE (08:21)
[2019-03-06] MEDS ORDERED: ONDANSETRON 4 MG/2 ML VIAL IVP ONE (08:21)
[2019-03-06] MEDS ORDERED: MIDAZOLAM 2 MG/2 ML VIAL IV ONE (08:32)
--- NOTE | 2019-03-06 08:37 | P.HPOB ---
History of Present Illness H&P Date: 03/06/19 Chief Complaint: 9 week missed The patient is a 33-year-old 3 para 2001 admitted with a diagnosis of a 9 week missed spontaneous diagnosed by ultrasound approximately 3-4 days ago. She has had significant issues with nausea and vomiting early in the ultimately requiring placement of a PICC line. Just that she was beginning to have relief from her nausea, she was found with the aforementioned diagnosis. She is counseled regarding options and has opted to undergo dilation and aspiration curettage. Obstetrical history: 3 para 2001 with 2 term sections previously. Current statistics are listed above. Blood type is Rh+. Gynecologic history: Unremarkable with no history of any infections to include STDs. Review of Systems Review of systems is confined to history of present illness. Past Medical History Past Medical History: No Reported History History of Any Multi-Drug Resistant Organisms: None Reported Past Surgical History: Section Additional Past Surgical History / Comment(s): x2 Past Anesthesia/Blood Transfusion Reactions: No Reported Reaction Smoking Status: Never smoker - Past Family History Mother Family Medical History: No Reported History Father Family Medical History: Unable to Obtain Medications and Allergies Home Medications Medication Instructions Recorded Confirmed Type No Known Home Medications 03/03/19 03/06/19 History Allergies Allergy/AdvReac Type Severity Reaction Status Date / Time No Known Allergies Allergy Verified 03/06/19 08:05 Exam Vital Signs Temp Pulse Resp BP Pulse Ox 03/06/19 08:07 98 F 83 16 108/55 100 In general, this is a well-developed, well-nourished female in no acute distress though she is emotional given the diagnoses. Her heart has a regular rhythm and rate without murmur. Her lungs are clear to auscultation bilaterally in all kimble. Her abdomen is nondistended, has normal active bowel sounds, soft, nontender, and without any palpable masses, hepatosplenomegaly, or hernias. Her extremities are without any cyanosis, clubbing, or edema and are nontender to palpation bilaterally. Pelvic examination is deferred until under anesthesia. Assessment and Plan (1) Missed Current Visit: Yes Status: Acute Code(s): O02.1 - MISSED SNOMED Code(s): 21919743 Plan: The patient was counseled regarding options for ongoing treatment including conservative management versus dilation and curettage and opted to undergo the latter. The risks and complications the procedure been thoroughly discussed including the risk for bleeding, bleeding, transfusion, infection, and injury to local structures to specifically include uterine rupture, Asherman syndrome, and possible retained products of conception. She has understood all of these and has agreed to proceed.
[2019-03-06] MEDS ORDERED: fentaNYL (PF) 50 MCG/ML 2 ML AMP ONE (08:52)
[2019-03-06] MEDS ORDERED: LIDOCAINE 1% INJ 10MG/ML (20 ML MDV) ONE (08:52)
[2019-03-06] MEDS ORDERED: KETOROLAC 30 MG/ML 1 ML VIAL ONE (08:52)
[2019-03-06] MEDS ORDERED: MIDAZOLAM 2 MG/2 ML VIAL ONE (08:52)
[2019-03-06] MEDS ORDERED: PROPOFOL 10 MG/ML 20 ML VIAL IV ONE (08:52)
--- NOTE | 2019-03-06 09:21 | P.PN ---
Progress Note - Text Progress Note Date: 03/06/19 PICC line Catheter removed under sterile technique, a total of 37 cm of the catheter removed , dressings applied, no complications.
[2019-03-06 09:35] VITALS: TEMP 97
[2019-03-06] MEDS ORDERED: ONDANSETRON 4 MG/2 ML VIAL IVP PRN (09:42)
[2019-03-06] MEDS ORDERED: diphenhydrAMINE 50 MG/ML 1 ML VIAL IVP PRN (09:42)
[2019-03-06] MEDS ORDERED: Acetaminophen-Codeine 300-30mg TAB PO PRN ×2 (09:42)
[2019-03-06] MEDS ORDERED: SIMETHICONE 80 MG CHEWABLE PO PRN (09:42)
[2019-03-06] MEDS ORDERED: KETOROLAC 30 MG/ML 1 ML VIAL IVP PRN (09:42)
[2019-03-06] MEDS ORDERED: METOCLOPRAMIDE 5 MG/ML 2 ML VIAL IVP PRN (09:42)
[2019-03-06] MEDS ORDERED: LACTATED RINGERS 1,000 ML IV SCH (09:45)
--- NOTE | 2019-03-06 09:49 | P.OP ---
Date of Procedure: 03/06/19 Preoperative Diagnosis: #1. 9+ weeks missed Postoperative Diagnosis: Same Procedure(s) Performed: #1. Dilation and aspiration curettage #2. Removal of PICC line Anesthesia: other (Gen. by facemask) Surgeon: Bryson Dela Cruz Estimated Blood Loss (ml): 350 IV fluids (ml): 500 Urine output (ml): 20 Pathology: other (Intrauterine contents/products of conception) Condition: stable Disposition: PACU Operative Findings: Preoperative pelvic examination demonstrated an 8-9 week anteverted mobile normal shaped uterus with normal adnexa bilaterally. Intraoperatively, the uterus sounded to 9 cm. A #8 curved aspiration curet was utilized and tissue was clearly seen passing through the tubing on the first pass only. The typical gritty texture was encountered using a sharp curette. Prior to the D&C, the PICC line was removed to its full extent by anesthesia and documented as such. Description of Procedure: The patient was prepped and draped in usual fashion after general anesthesia was administered by the anesthesiologist. The PICC line was removed after induction of anesthesia. A weighted speculum was placed and the bladder drained of approximately 20 mL of clear kailash urine. The anterior lip of the cervix was grasped with a single-tooth tenaculum and the uterus was sounded to 9 cm as noted above. Serial dilation was carried out to admit a #8 curved aspiration curet which was placed to the fundus of the uterus and suction applied. After adequate suction had been built, thorough and circumferential suction curettage was carried out from the fundus of the uterus to the cervix. Tissue was clearly seen passing through the tubing on the first pass. A second pass was made at which no further tissue was noted and uterus is appreciably smaller. The suction curet was set aside in favor of a small sharp curette which was utilized to thoroughly and circumferentially curet the lining of the uterus and bring the tissue into the vagina where it was removed with the suction curet. No further tissue was noted with the sharp curet at all. A single last pass was made with the suction curet in similar fashion to previously with no further tissue noted. All instrumentation was removed. The tenaculum site was made hemostatic with pressure. Estimated blood loss for the entire case was approximately 350 mL, there were no complications. All sponge, instrument, and needle counts were correct. The patient tolerated the procedure well and proceeded to the recovery room in stable condition.
[2019-03-06 10:08] VITALS: RESP 16
[2019-03-06 10:26] VITALS: BP 99/62; PULSE 88
== END 2019-03-06 11:16 | disposition home or self-care (01) ==
LOC: OR 07:48
PROVIDERS: ATTEND Obstetrics & Gynecology
DX: O02.1 Missed abortion (principal)
CPT/HCPCS: 88305; 59820; J2250; J1100; J2405; J2001; J3010; J1885; J2704

== ENCOUNTER 2020-09-04 20:24 | Emergency (ER) | payer BC ==
[2020-09-04 20:33] VITALS: TEMP 98.5
[2020-09-04] MEDS ORDERED: SODIUM CHLORIDE 0.9% 1,000 ML IV STA (20:59)
[2020-09-04] MEDS ORDERED: SODIUM CHLORIDE 0.9% 500 ML 500 ML IV STA (20:59)
[2020-09-04] MEDS ORDERED: MECLIZINE 12.5 MG TAB PO STA (20:59)
[2020-09-04] MEDS ORDERED: METOCLOPRAMIDE 5 MG/ML 2 ML VIAL IVP STA (21:00)
--- NOTE | 2020-09-04 21:12 | ED ---
General Adult HPI - General Chief complaint: Dizziness Stated complaint: Dehydrated Time Seen by Provider: 09/04/20 20:34 Source: patient, RN notes reviewed Mode of arrival: ambulatory Limitations: no limitations - History of Present Illness Initial comments: Patient is a pleasant 35-year-old female presenting to the emergency Department with complaints of lightheadedness. Onset of symptoms was after drinking around a week ago, alcohol. Patient states since that time she has had decreased oral intake. Patient states she has had some intermittent headaches that have been somewhat severe however they're controlled with Excedrin. No headache at this time. Patient states she does have some mild nausea. Patient states at times she does feel a little bit of a spinning type sensation. Patient did go to her [facility] a few days ago and did get IV fluids with mild improvement of symptoms. Patient did have negative test. Patient did have scopolamine patch on however this does not seem to be helping her much. - Related Data Home Medications Medication Instructions Recorded Confirmed [id number] 2 tab PO Q6H PRN 09/04/20 09/04/20 [Excedrin] Previous Rx's Medication Instructions Recorded Meclizine [Antivert] 25 mg PO TID PRN #12 tab 09/04/20 Metoclopramide HCl [Reglan] 10 mg PO Q6HR PRN #15 tablet 09/04/20 Allergies Allergy/AdvReac Type Severity Reaction Status Date / Time No Known Allergies Allergy Verified 09/04/20 21:11 Review of Systems ROS Statement: Those systems with pertinent positive or pertinent negative responses have been documented in the HPI. ROS Other: All systems not noted in ROS Statement are negative. Constitutional: Denies: fever Eyes: Denies: eye pain ENT: Denies: ear pain Respiratory: Denies: dyspnea Cardiovascular: Denies: chest pain Endocrine: Reports: fatigue Gastrointestinal: Reports: nausea. Denies: abdominal pain, vomiting Genitourinary: Denies: dysuria Musculoskeletal: Denies: back pain Skin: Denies: rash Neurological: Reports: as per HPI, headache, vertigo. Denies: confusion Past Medical History Past Medical History: No Reported History History of Any Multi-Drug Resistant Organisms: None Reported Past Surgical History: Section Additional Past Surgical History / Comment(s): x2 Past Anesthesia/Blood Transfusion Reactions: No Reported Reaction Past Psychological History: No Psychological Hx Reported Smoking Status: Never smoker Past Alcohol Use History: Occasional Past Drug Use History: None Reported - Past Family History Mother Family Medical History: No Reported History Father Family Medical History: Unable to Obtain General Exam Limitations: no limitations General appearance: alert, in no apparent distress Head exam: Present: normocephalic Eye exam: Present: normal appearance, PERRL, EOMI. Absent: nystagmus ENT exam: Present: normal oropharynx, TM's normal bilaterally Neck exam: Present: normal inspection Respiratory exam: Present: normal lung sounds bilaterally Cardiovascular Exam: Present: regular rate, normal rhythm GI/Abdominal exam: Present: soft. Absent: tenderness Extremities exam: Present: normal inspection Neurological exam: Present: alert, oriented X3, CN II-XII intact. Absent: motor sensory deficit Expanded Neurological exam: Present: protecting the airway Patient oriented to: Present: person, place, time Speech: Present: fluid speech Cranial nerves: EOM's Intact: Normal, Facial Sensation: Normal Cerebellar function: Finger to Nose: Normal Sensory exam: Upper Extremity Light Touch: Normal, Lower Extremity Light Touch: Normal Motor strength exam: RUE: 5, LUE: 5, RLE: 5, LLE: 5 Eye Response: (4) open spontaneously Motor Response: (6) obeys commands Verbal Response: (5) oriented Psychiatric exam: Present: normal affect, normal mood Skin exam: Present: normal color Course Vital Signs 09/04/20 20:30 Temperature 98.5 F Pulse Rate 96 Respiratory 18 Rate Blood Pressure 112/76 O2 Sat by Pulse 100 Oximetry Medical Decision Making - Medical Decision Making Patient reevaluated and resting comfortably in bed. Patient is feeling better. Patient comfortable discharge. Patient updated on results and need for follow- up. Patient states she does have an appointment with ENT next week. - Lab Data Result diagrams: 09/04/20 20:59 09/04/20 20:59 Lab Results 09/04/20 09/04/20 09/04/20 Range/Units 20:59 20:59 20:59 WBC 7.4 (3.8-10.6) k/uL RBC 4.54 (3.80-5.40) m/uL Hgb 12.8 (11.4-16.0) gm/dL Hct 39.2 (34.0-46.0) % MCV 86.4 (80.0-100.0) fL MCH 28.3 (25.0-35.0) pg MCHC 32.7 (31.0-37.0) g/dL RDW 13.7 (11.5-15.5) % Plt Count 271 (150-450) k/uL Neutrophils % 69 % Lymphocytes % 23 % Monocytes % 5 % Eosinophils % 2 % Basophils % 0 % Neutrophils # 5.1 (1.3-7.7) k/uL Lymphocytes # 1.7 (1.0-4.8) k/uL Monocytes # 0.3 (0-1.0) k/uL Eosinophils # 0.2 (0-0.7) k/uL Basophils # 0.0 (0-0.2) k/uL PT 9.9 (9.0-12.0) sec INR 1.0 (<1.2) APTT 24.3 (22.0-30.0) sec Sodium 138 (137-145) mmol/L Potassium 4.4 (3.5-5.1) mmol/L Chloride 105 (98-107) mmol/L Carbon Dioxide 23 (22-30) mmol/L Anion Gap 10 mmol/L BUN 12 (7-17) mg/dL Creatinine 0.78 (0.52-1.04) mg/dL Est GFR (CKD-EPI)AfAm >90 (>60 ml/min/1.73 sqM) Est GFR (CKD-EPI)NonAf >90 (>60 ml/min/1.73 sqM) Glucose 99 (74-99) mg/dL Calcium 10.2 (8.4-10.2) mg/dL Total Bilirubin 0.7 (0.2-1.3) mg/dL AST 26 (14-36) U/L ALT 12 (4-34) U/L Alkaline Phosphatase 46 (38-126) U/L Total Protein 8.3 H (6.3-8.2) g/dL Albumin 4.9 (3.5-5.0) g/dL Urine Color Urine Appearance (Clear) Urine pH (5.0-8.0) Ur Specific [place] (1.001-1.035) Urine Protein (Negative) Urine Glucose (UA) (Negative) Urine Ketones (Negative) Urine Blood (Negative) Urine Nitrite (Negative) Urine Bilirubin (Negative) Urine Urobilinogen (<2.0) mg/dL Ur Leukocyte Esterase (Negative) 09/04/20 Range/Units 21:01 WBC (3.8-10.6) k/uL RBC (3.80-5.40) m/uL Hgb (11.4-16.0) gm/dL Hct (34.0-46.0) % MCV (80.0-100.0) fL MCH (25.0-35.0) pg MCHC (31.0-37.0) g/dL RDW (11.5-15.5) % Plt Count (150-450) k/uL Neutrophils % % Lymphocytes % % Monocytes % % Eosinophils % % Basophils % % Neutrophils # (1.3-7.7) k/uL Lymphocytes # (1.0-4.8) k/uL Monocytes # (0-1.0) k/uL Eosinophils # (0-0.7) k/uL Basophils # (0-0.2) k/uL PT (9.0-12.0) sec INR (<1.2) APTT (22.0-30.0) sec Sodium (137-145) mmol/L Potassium (3.5-5.1) mmol/L Chloride (98-107) mmol/L Carbon Dioxide (22-30) mmol/L Anion Gap mmol/L BUN (7-17) mg/dL Creatinine (0.52-1.04) mg/dL Est GFR (CKD-EPI)AfAm (>60 ml/min/1.73 sqM) Est GFR (CKD-EPI)NonAf (>60 ml/min/1.73 sqM) Glucose (74-99) mg/dL Calcium (8.4-10.2) mg/dL Total Bilirubin (0.2-1.3) mg/dL AST (14-36) U/L ALT (4-34) U/L Alkaline Phosphatase (38-126) U/L Total Protein (6.3-8.2) g/dL Albumin (3.5-5.0) g/dL Urine Color Light Yellow Urine Appearance Clear (Clear) Urine pH 6.0 (5.0-8.0) Ur Specific [place] 1.005 (1.001-1.035) Urine Protein Negative (Negative) Urine Glucose (UA) Negative (Negative) Urine Ketones Negative (Negative) Urine Blood Negative (Negative) Urine Nitrite Negative (Negative) Urine Bilirubin Negative (Negative) Urine Urobilinogen <2.0 (<2.0) mg/dL Ur Leukocyte Esterase Negative (Negative) - Radiology Data Radiology results: report reviewed (Computed tomography scan the brain and CTA revealed no acute abnormality) Disposition Clinical Impression: Lightheadedness Disposition: HOME SELF-CARE Condition: Stable Instructions (If sedation given, give patient instructions): Dizziness (ED) Additional Instructions: Please follow-up with ENT next week as planned. Please also follow-up with [facility] physician in the next day or 2 for recheck. Return for increased dizziness, weakness, confusion, worsening or change in symptoms or other concerns. Prescriptions have been sent to your pharmacy Prescriptions: Meclizine [Antivert] 25 mg PO TID PRN #12 tab PRN Reason: dizziness Metoclopramide HCl [Reglan] 10 mg PO Q6HR PRN #15 tablet PRN Reason: Nausea Is patient prescribed a controlled substance at d/c from ED?: No Referrals: Tk Clemente MD [Primary Care Provider] - 1-2 days Reynaldo Noble MD [STAFF PHYSICIAN] - 1-2 days Time of Disposition: 22:17
[2020-09-04 21:18] LABS: Basophils % (A) 0 %; Eosinophils # (A) 0.2 k/uL (0-0.7); Eosinophils % (A) 2 %; HCT 39.2 % (34.0-46.0); HGB 12.8 gm/dL (11.4-16.0); Lymphocytes # (A) 1.7 k/uL (1.0-4.8); Lymphocytes % (A) 23 %; MCH 28.3 pg (25.0-35.0); MCHC 32.7 g/dL (31.0-37.0); MCV 86.4 fL (80.0-100.0); Mean Platelet Volume 7.9; Monocytes # (A) 0.3 k/uL (0-1.0); Monocytes % (A) 5 %; Neutrophils # (A) 5.1 k/uL (1.3-7.7); Neutrophils % (A) 69 %; Platelet Count 271 k/uL (150-450); RBC 4.54 m/uL (3.80-5.40); RDW 13.7 % (11.5-15.5); WBC 7.4 k/uL (3.8-10.6)
[2020-09-04 21:18] LABS: Appearance,Urine Clear (Clear); Bilirubin,Urine Negative (Negative); Blood,Urine Negative (Negative); Color,Urine Light Yellow; Glucose,Urine (UA) Negative (Negative); Ketones,Urine Negative (Negative); Leukocyte Esterase,Urine Negative (Negative); Nitrite,Urine Negative (Negative); Protein,Urine Negative (Negative); Specific Gravity,Urine 1.005 (1.001-1.035); Urobilinogen,Urine <2.0 mg/dL (<2.0)
[2020-09-04 21:29] LABS: African American GFR (CKD) >90 (>60 ml/min/1.73 sqM); Anion Gap 10 mmol/L; Blood Urea Nitrogen 12 mg/dL (7-17); Calcium 10.2 mg/dL (8.4-10.2); Carbon Dioxide 23 mmol/L (22-30); Chloride 105 mmol/L (98-107); Glucose 99 mg/dL (74-99); Non-African American GFR(CKD) >90 (>60 ml/min/1.73 sqM); Sodium 138 mmol/L (137-145)
[2020-09-04 21:30] LABS: ALT 12 U/L (4-34); Albumin 4.9 g/dL (3.5-5.0); Total Bilirubin 0.7 mg/dL (0.2-1.3); Total Protein 8.3 g/dL (6.3-8.2)
[2020-09-04 21:31] LABS: Partial Thromboplastin Time 24.3 sec (22.0-30.0); Prothrombin Time 9.9 sec (9.0-12.0)
--- NOTE | 2020-09-04 21:47 | CT ---
EXAMINATION TYPE: CT brain wo con DATE OF EXAM: 09/04/2020 COMPARISON: 09/08/2013 HISTORY: headache, vertigo CT DLP: 2352.6 mGycm Automated exposure control for dose reduction was used. Ventricles and sulci appear normal. There is no mass effect nor midline shift. There is no sign of in tracranial hemorrhage. Calvarium is intact. There is no evidence of cerebral edema. Skull base is int act. IMPRESSION: Negative unenhanced head CT scan. No change.
[2020-09-04 21:49] LABS: AST 26 U/L (14-36); Alkaline Phosphatase 46 U/L (38-126); Potassium 4.4 mmol/L (3.5-5.1)
--- NOTE | 2020-09-04 22:06 | CT ---
EXAMINATION TYPE: CT angio head neck DATE OF EXAM: 09/04/2020 COMPARISON: None HISTORY: headache, vertigo CT DLP: 449 mGycm Automated exposure control for dose reduction was used. CONTRAST: Performed with IV Contrast, patient injected with 65cc mL of Isovue 370. Images obtained from the aortic arch to the vertex of the brain with IV contrast and 3-D post process ed images. FINDINGS: There is normal branching pattern of the great vessels on the aortic arch. There is bilateral arteria l flow in the subclavian arteries. There is arterial flow in the common internal and external carotid arteries bilaterally. There is wide patency of the carotid artery bifurcations. There is arterial fl ow in both vertebral arteries. Vertebral arteries appear normal. There is arterial flow in the verteb robasilar artery system. There is arterial flow in the anterior middle and posterior cerebral arteries. There is no mass effec t. There is no sign of intracranial aneurysm or neovascularity. There is no evidence of intracranial arterial stenosis. There is normal contrast opacification of the venous sinuses. IMPRESSION: Normal CT angiogram of the neck. Normal CT angiogram of the brain.
[2020-09-04 22:29] VITALS: BP 108/69; PULSE 61; RESP 16
== END 2020-09-04 22:30 | disposition home or self-care (01) ==
LOC: EC 20:24
DX: R42 Dizziness and giddiness (principal); R11.0 Nausea; R51.9 Headache, unspecified
CPT/HCPCS: 99284 ×2; 96374 ×2; 96361 ×2; 36415; 80053; 85025; 85610; 85730; 81003; 70496; 70450; 70498; J2765; Q9967

== ENCOUNTER → 2020-09-09 | Outpatient (CLI) | payer BC | END | disposition home or self-care (01) | LOC: LABWHC1 13:15 | PROVIDERS: ATTEND Nurse Practitioner Family | DX: Z03.818 Encounter for observation for suspected exposure to other biological agents ruled out (principal) | CPT/HCPCS: U0003; C9803 ==

== ENCOUNTER → 2020-10-21 | Outpatient (CLI) | payer BC | END | disposition home or self-care (01) | LOC: LABWHC1 10:45 | PROVIDERS: ATTEND Family Medicine | DX: Z20.828 Contact with and (suspected) exposure to other viral communicable diseases (principal) | CPT/HCPCS: U0003; C9803 ==

== ENCOUNTER 2020-12-23 18:29 | Emergency (ER) | payer BC ==
--- NOTE | 2020-12-23 19:01 | ED ---
General Adult HPI - General Chief complaint: Chest Pain Stated complaint: Chest Pain Time Seen by Provider: 12/23/20 18:30 Source: patient, RN notes reviewed, old records reviewed Mode of arrival: wheelchair Limitations: no limitations - History of Present Illness Initial comments: This is a 35-year-old female presents emergency department stating that she comes in with chest pain. Patient states she started taking an antibiotic for urinary tract infection and right after that she started getting chest pain and she constantly felt like she was clearing her throat. She states that the sensation to clear her throat was the initial symptom and it was followed by this chest discomfort. Patient states she's cleared her throat so much that she has made her throat route. Patient denies any shortness of breath or difficulty breathing. 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 Patient denies any diaphoresis. Patient denies any nausea or vomiting. Patient denies any fever chills or cough. Patient denies any leg swelling or calf tenderness. Patient denies any control use. Patient states she doesn't smoke cigarettes but she does smoke marijuana. Patient denies any hypertension high cholesterol or diabetes. Patient denies family history of heart disease - Related Data Home Medications Medication Instructions Recorded Confirmed metroNIDAZOLE [Flagyl] 500 mg PO BID 12/23/20 12/23/20 Allergies Allergy/AdvReac Type Severity Reaction Status Date / Time No Known Allergies Allergy Verified 12/23/20 19:25 Review of Systems ROS Statement: Those systems with pertinent positive or pertinent negative responses have been documented in the HPI. ROS Other: All systems not noted in ROS Statement are negative. Past Medical History Past Medical History: No Reported History History of Any Multi-Drug Resistant Organisms: None Reported Past Surgical History: Section Additional Past Surgical History / Comment(s): x2 Past Anesthesia/Blood Transfusion Reactions: No Reported Reaction Past Psychological History: No Psychological Hx Reported Smoking Status: Never smoker Past Alcohol Use History: Rare Past Drug Use History: Marijuana - Past Family History Mother Family Medical History: No Reported History Father Family Medical History: Unable to Obtain General Exam - General Exam Comments Initial Comments: GENERAL: Patient is well-developed and well-nourished. Patient is nontoxic and well- hydrated and is in no acute distress. ENT: Neck is soft and supple. No significant lymphadenopathy is noted. Oropharynx is clear. Moist mucous membranes. Neck has full range of motion without eliciting any pain. EYES: The sclera were anicteric and conjunctiva were pink and moist. Extraocular movements were intact and pupils were equal round and reactive to light. Eyelids were unremarkable. PULMONARY: Unlabored respirations. Good breath sounds bilaterally. No audible rales rhonchi or wheezing was noted. CARDIOVASCULAR: There is a regular rate and rhythm without any murmurs gallops or rubs. ABDOMEN: Soft and nontender with normal bowel sounds. SKIN: Skin is clear with no lesions or rashes and otherwise unremarkable. NEUROLOGIC: Patient is alert and oriented x3. Cranial nerves II through XII are grossly in tact. Motor and sensory are also intact. Normal speech, volume and content. Symmetrical smile. MUSCULOSKELETAL: Normal extremities with adequate strength and full range of motion. No lower extremity swelling or edema. No calf tenderness. LYMPHATICS: No significant lymphadenopathy is noted PSYCHIATRIC: Normal psychiatric evaluation. Limitations: no limitations Course Vital Signs 12/23/20 12/23/20 12/23/20 18:30 18:48 19:58 Temperature 98.4 F Pulse Rate 81 58 L Respiratory 18 18 16 Rate Blood Pressure 117/73 109/50 O2 Sat by Pulse 100 100 Oximetry Medical Decision Making - Medical Decision Making EKG shows sinus rhythm at 69 bpm TX interval 162 QRS is 94 QTC is 422 QTC is 452. Patient's EKG shows no ST segment elevation or depression. Patient is in no distress in the emergency department. Patient's vital signs were stable throughout the patient's ED stay. Patient's chest x-ray showed no acute abnormality. - Lab Data Result diagrams: 12/23/20 19:44 12/23/20 19:44 Lab Results 12/23/20 12/23/20 12/23/20 Range/Units 19:44 19:44 19:44 WBC 7.5 (3.8-10.6) k/uL RBC 4.09 (3.80-5.40) m/uL Hgb 11.6 (11.4-16.0) gm/dL Hct 35.0 (34.0-46.0) % MCV 85.6 (80.0-100.0) fL MCH 28.4 (25.0-35.0) pg MCHC 33.2 (31.0-37.0) g/dL RDW 14.2 (11.5-15.5) % Plt Count 252 (150-450) k/uL MPV 8.1 Neutrophils % 67 % Lymphocytes % 27 % Monocytes % 3 % Eosinophils % 2 % Basophils % 1 % Neutrophils # 5.0 (1.3-7.7) k/uL Lymphocytes # 2.0 (1.0-4.8) k/uL Monocytes # 0.2 (0-1.0) k/uL Eosinophils # 0.1 (0-0.7) k/uL Basophils # 0.1 (0-0.2) k/uL PT 10.6 (9.0-12.0) sec INR 1.0 (<1.2) APTT 25.3 (22.0-30.0) sec D-Dimer 0.45 (<0.60) mg/L FEU Sodium 141 (137-145) mmol/L Potassium 4.4 (3.5-5.1) mmol/L Chloride 107 (98-107) mmol/L Carbon Dioxide 24 (22-30) mmol/L Anion Gap 10 mmol/L BUN 14 (7-17) mg/dL Creatinine 0.74 (0.52-1.04) mg/dL Est GFR (CKD-EPI)AfAm >90 (>60 ml/min/1.73 sqM) Est GFR (CKD-EPI)NonAf >90 (>60 ml/min/1.73 sqM) Glucose 86 (74-99) mg/dL Calcium 9.4 (8.4-10.2) mg/dL Magnesium 2.1 (1.6-2.3) mg/dL Total Bilirubin 0.4 (0.2-1.3) mg/dL AST 21 (14-36) U/L ALT 10 (4-34) U/L Alkaline Phosphatase 50 (38-126) U/L Troponin I (0.000-0.034) ng/mL Total Protein 7.5 (6.3-8.2) g/dL Albumin 4.4 (3.5-5.0) g/dL 12/23/20 Range/Units 19:44 WBC (3.8-10.6) k/uL RBC (3.80-5.40) m/uL Hgb (11.4-16.0) gm/dL Hct (34.0-46.0) % MCV (80.0-100.0) fL MCH (25.0-35.0) pg MCHC (31.0-37.0) g/dL RDW (11.5-15.5) % Plt Count (150-450) k/uL MPV Neutrophils % % Lymphocytes % % Monocytes % % Eosinophils % % Basophils % % Neutrophils # (1.3-7.7) k/uL Lymphocytes # (1.0-4.8) k/uL Monocytes # (0-1.0) k/uL Eosinophils # (0-0.7) k/uL Basophils # (0-0.2) k/uL PT (9.0-12.0) sec INR (<1.2) APTT (22.0-30.0) sec D-Dimer (<0.60) mg/L FEU Sodium (137-145) mmol/L Potassium (3.5-5.1) mmol/L Chloride (98-107) mmol/L Carbon Dioxide (22-30) mmol/L Anion Gap mmol/L BUN (7-17) mg/dL Creatinine (0.52-1.04) mg/dL Est GFR (CKD-EPI)AfAm (>60 ml/min/1.73 sqM) Est GFR (CKD-EPI)NonAf (>60 ml/min/1.73 sqM) Glucose (74-99) mg/dL Calcium (8.4-10.2) mg/dL Magnesium (1.6-2.3) mg/dL Total Bilirubin (0.2-1.3) mg/dL AST (14-36) U/L ALT (4-34) U/L Alkaline Phosphatase (38-126) U/L Troponin I <0.012 (0.000-0.034) ng/mL Total Protein (6.3-8.2) g/dL Albumin (3.5-5.0) g/dL Disposition Clinical Impression: Atypical chest pain Disposition: HOME SELF-CARE Instructions (If sedation given, give patient instructions): Gastroesophageal Reflux Disease (ED), Chest Pain (ED) Is patient prescribed a controlled substance at d/c from ED?: No Referrals: Tk Clemente MD [Primary Care Provider] - 1-2 days Time of Disposition: 20:51
[2020-12-23 19:56] LABS: Basophils # (A) 0.1 k/uL (0-0.2); Basophils % (A) 1 %; Eosinophils # (A) 0.1 k/uL (0-0.7); Eosinophils % (A) 2 %; HGB 11.6 gm/dL (11.4-16.0); Lymphocytes % (A) 27 %; MCH 28.4 pg (25.0-35.0); MCHC 33.2 g/dL (31.0-37.0); MCV 85.6 fL (80.0-100.0); Mean Platelet Volume 8.1; Monocytes # (A) 0.2 k/uL (0-1.0); Monocytes % (A) 3 %; Neutrophils % (A) 67 %; Platelet Count 252 k/uL (150-450); RBC 4.09 m/uL (3.80-5.40); RDW 14.2 % (11.5-15.5); WBC 7.5 k/uL (3.8-10.6)
[2020-12-23 19:59] VITALS: RESP 16
--- NOTE | 2020-12-23 20:05 | XR ---
EXAMINATION TYPE: XR chest 2V DATE OF EXAM: 12/23/2020 COMPARISON: NONE HISTORY: Chest pain TECHNIQUE: 2 views FINDINGS: Heart and mediastinum are normal. Lungs are clear. Diaphragm is normal. Bony thorax appears normal. IMPRESSION: Normal chest.
[2020-12-23 20:07] LABS: ALT 10 U/L (4-34); AST 21 U/L (14-36); African American GFR (CKD) >90 (>60 ml/min/1.73 sqM); Albumin 4.4 g/dL (3.5-5.0); Alkaline Phosphatase 50 U/L (38-126); Anion Gap 10 mmol/L; Blood Urea Nitrogen 14 mg/dL (7-17); Calcium 9.4 mg/dL (8.4-10.2); Carbon Dioxide 24 mmol/L (22-30); Chloride 107 mmol/L (98-107); Glucose 86 mg/dL (74-99); Magnesium 2.1 mg/dL (1.6-2.3); Non-African American GFR(CKD) >90 (>60 ml/min/1.73 sqM); Potassium 4.4 mmol/L (3.5-5.1); Sodium 141 mmol/L (137-145); Total Bilirubin 0.4 mg/dL (0.2-1.3); Total Protein 7.5 g/dL (6.3-8.2)
[2020-12-23 20:43] LABS: D-Dimer 0.45 mg/L FEU (<0.60); Partial Thromboplastin Time 25.3 sec (22.0-30.0); Prothrombin Time 10.6 sec (9.0-12.0)
[2020-12-23 21:06] VITALS: BP 112/56; PULSE 64; TEMP 98.1
== END 2020-12-23 21:05 | disposition home or self-care (01) ==
LOC: EC 18:29
DX: R07.89 Other chest pain (principal)
CPT/HCPCS: 36415; 71046; 80053; 83735; 84484; 85025; 85379; 85610; 85730; 93005; 99285